=== PATIENT | male | born 1990 | race Caucasian/White ===

== ENCOUNTER 2020-08-10 18:41 | Emergency (ER) | payer MEDICAID ==
[~2020-08-10] VITALS: Ht 180.3 cm; Wt 67.1 kg
[2020-08-10 19:14] VITALS: BP 120/73
[2020-08-10] MEDS ORDERED: LIDOCAINE-MPF 1%, 5ML INFIL ONE (20:00)
[2020-08-10] MEDS ORDERED: LIDOCAINE 1%-EPI 1:100K, 20ML ONE (20:45)
[2020-08-10] MEDS ORDERED: BUPIVACAINE 0.25% ONE (20:45)
[2020-08-10] MEDS ORDERED: LIDOCAINE 1%-EPI 1:100K, 20ML SQ ONE (21:00)
[2020-08-10] MEDS ORDERED: BUPIVACAINE/PF-EPI 0.25% 1:200K SQ ONE (21:00)
== END 2020-08-10 21:50 | disposition home or self-care (01) ==
LOC: ED 20:39
DX: K64.5 Perianal venous thrombosis (principal); K62.89 Other specified diseases of anus and rectum
CPT/HCPCS: 10060; 99283